=== PATIENT | female | born 1955 ===

== ENCOUNTER 2017-10-31 22:57 | Inpatient (IN) | payer OTHER ==
[2017-11-01 02:01] LABS: Basophils # (Auto) 0.1 K/mm3 (0.0-0.1); Basophils % (Auto) 1.1 % (0.0-1.8); Eosinophils % (Auto) 0.3 % (0.0-4.3); Hematocrit 36.8 % (30.3-42.9); Hemoglobin 12.7 gm/dl (10.1-14.3); Lymphocytes # (Auto) 2.2 K/mm3 (1.2-5.4); Lymphocytes % (Auto) 28.8 % (13.4-35.0); Mean Corpuscular HGB Conc 35 % (30-34); Mean Corpuscular Hemoglobin 34 pg (28-32); Mean Corpuscular Volume 97 fl (79-97); Monocytes # (Auto) 0.4 K/mm3 (0.0-0.8); Monocytes % (Auto) 5.6 % (0.0-7.3); Platelet Count 303 K/mm3 (140-440); Red Blood Count 3.79 M/mm3 (3.65-5.03); Red Cell Distribution Width 13.9 % (13.2-15.2)
[2017-11-01 02:12] LABS: Alanine Aminotransferase 12 units/L (7-56); Albumin 4.5 g/dL (3.9-5); BUN/Creatinine Ratio 34; Blood Urea Nitrogen 27 mg/dL (7-17); Calcium 8.9 mg/dL (8.4-10.2); Hemolysis Index 4
--- NOTE | 2017-11-01 03:31 | XRay Report ---
FINAL REPORT PROCEDURE: XR FEMUR 2+V RT TECHNIQUE: RIGHT femur radiographs, AP and lateral views. HISTORY: right leg pain COMPARISON: No prior studies are available for comparison. FINDINGS: Fracture (s) and/or Dislocation(s): None . Joint space(s): Normal . Soft tissues: Normal . Bone mineralization: Normal . Foreign bodies: None . IMPRESSION: Normal Examination
--- NOTE | 2017-11-01 04:06 | Cat Scan Report ---
FINAL REPORT PROCEDURE: CT HEAD/BRAIN WO CON TECHNIQUE: Computerized tomography of the head was performed without contrast material. HISTORY: dizziness COMPARISON: No prior studies are available for comparison. FINDINGS: Skull and scalp: There is an old right frontal craniotomy defect.. Paranasal sinuses: Normal. Ventricles and subarachnoid spaces: There is central and cortical atrophy appropriate for the patient's age.. Cerebrum: No evidence of hemorrhage, acute infarction or mass. 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 Cerebellum and brainstem: No evidence of hemorrhage, acute infarction or mass. Vasculature: Normal. Comments: None. IMPRESSION: There is an old right frontal craniotomy defect.. There is central and cortical atrophy appropriate for the patient's age.. There is no hemorrhage, edema, mass, mass effect or midline shift. 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
[2017-11-01] MEDS ORDERED: NORCO 5/325 PO ONE (05:22)
[2017-11-01] MEDS ORDERED: ANTIVERT PO ONE (05:22)
[2017-11-01] MEDS ORDERED: NACL 0.9% 1000 ML 1,000 ML IV ONE (05:25)
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
[2017-11-01 13:15] LABS: Bilirubin,Urine NEG (Negative); Blood,Urine LG (Negative); Color,Urine Yellow (Yellow); Mucus,Urine FEW /HPF; Urobilinogen,Urine < 2.0 mg/dL (<2.0)
[2017-11-01] MEDS ORDERED: APRESOLINE IV PRN (22:37)
[2017-11-01] MEDS ORDERED: ZOFRAN IV PRN (22:37)
[2017-11-02] MEDS: NACL 0.9% 1000 ML 1,000 ML IV SCH ×2 (08:23→23:08)
[2017-11-02] MEDS ORDERED: FIORICET PO PRN (10:14)
--- NOTE | 2017-11-02 10:21 | Progress Note ---
Assessment and Plan - Patient Problems (1) Ataxia Current Visit: Yes Status: Acute Plan to address problem: Secondary to hypotension IV fluids for now For discharge tomorrow (2) UTI (urinary tract infection) Current Visit: Yes Status: Acute Qualifiers: Urinary tract infection type: acute cystitis Plan to address problem: Patient initiated on Rocephin today If symptomatically better patient to be discharged on oral antibiotics tomorrow. Check urine cultures (3) Hyponatremia Current Visit: Yes Status: Acute Plan to address problem: Secondary to Dehydration Should correct with IV fluids (4) Low TSH level Current Visit: Yes Status: Acute Plan to address problem: T4 is normal Probable sick Euthyroid syndrome (5) Headache Current Visit: Yes Status: Chronic Qualifiers: Headache type: tension-type Intractability: intractable Plan to address problem: Patient has craniotomy in the past Symptomatic treatment with Fioricet (6) DVT prophylaxis Current Visit: Yes Status: Acute Plan to address problem: On Lovenox Subjective Date of service: 11/02/17 Principal diagnosis: UTI,Hypotension Interval history: Still has severe Headache and dizziness Objective - Constitutional Vitals: Vital Signs - 12hr 11/01/17 11/02/17 11/02/17 23:41 05:15 07:26 Temperature 97.7 F 98.0 F 98.4 F Pulse Rate 102 H 82 76 Respiratory 18 20 16 Rate Blood Pressure 136/91 138/92 138/84 O2 Sat by Pulse 96 96 96 Oximetry General appearance: Present: no acute distress, well-nourished - EENT Eyes: PERRL, EOM intact ENT: hearing intact, clear oral mucosa Ears: bilateral: normal - Neck Neck: supple, normal ROM - Respiratory Respiratory effort: normal Respiratory: bilateral: CTA - Breasts Breasts: normal - Cardiovascular Rhythm: regular Heart Sounds: Present: S1 & S2. Absent: gallop, rub Extremities: no ischemia, pulses intact, No edema, normal color, Full ROM - Gastrointestinal General gastrointestinal: Present: soft, non-tender, non-distended, normal bowel sounds - Genitourinary Female genitourinary: normal - Integumentary Integumentary: clear, warm, dry - Musculoskeletal Musculoskeletal: 1, strength equal bilaterally - Neurologic Neurologic: moves all extremities - Psychiatric Psychiatric: memory intact, appropriate mood/affect, intact judgment & insight - Labs CBC & Chem 7: 11/01/17 00:59 11/01/17 00:59 Labs: Abnormal lab results 11/01/17 Range/Units 12:58 Urine WBC (Auto) 131.0 H (0.0-6.0) /HPF CT Head IMPRESSION: There is an old right frontal craniotomy defect.. There is central and cortical atrophy appropriate for the patient's age.. There is no hemorrhage , edema, mass, mass effect or midline shift. 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
[2017-11-02] MEDS ORDERED: ROCEPHIN/NS 2 GM/100 ML 2 GM/100 ML BAG IV SCH (11:00)
[2017-11-02] MEDS: cefTRIAXone 2 GM in NACL 0.9% 20 ML IV SCH (15:48)
[2017-11-03 08:12] LABS: Basophils % (Auto) 0.8 % (0.0-1.8); Eosinophils # (Auto) 0.1 K/mm3 (0.0-0.4); Eosinophils % (Auto) 2.4 % (0.0-4.3); Hematocrit 34.6 % (30.3-42.9); Hemoglobin 11.9 gm/dl (10.1-14.3); Lymphocytes # (Auto) 2.6 K/mm3 (1.2-5.4); Lymphocytes % (Auto) 43.1 % (13.4-35.0); Mean Corpuscular HGB Conc 34 % (30-34); Mean Corpuscular Hemoglobin 34 pg (28-32); Mean Corpuscular Volume 97 fl (79-97); Monocytes # (Auto) 0.4 K/mm3 (0.0-0.8); Monocytes % (Auto) 7.2 % (0.0-7.3); Platelet Count 235 K/mm3 (140-440); Red Blood Count 3.55 M/mm3 (3.65-5.03); Red Cell Distribution Width 13.8 % (13.2-15.2)
[2017-11-03 08:34] LABS: Alanine Aminotransferase 7 units/L (7-56); Albumin 3.6 g/dL (3.9-5); BUN/Creatinine Ratio 18; Blood Urea Nitrogen 9 mg/dL (7-17); Calcium 8.6 mg/dL (8.4-10.2); Hemolysis Index 1
[2017-11-03] MEDS: cefTRIAXone 2 GM in NACL 0.9% 20 ML IV SCH (09:50)
--- NOTE | 2017-11-03 12:16 | Progress Note ---
Assessment and Plan Ataxia [employer] dyfunction Cardiomegaly HTN Plan CT head was nl IV hydration Orthostatic blood pressure measurements carotid doppler optimize BP control DVT PPX with lovenox Subjective Date of service: 11/03/17 Principal diagnosis: UTI,Hypotension Interval history: Patient seen and examined. No more dizziness. Objective - Exam Narrative Exam: Constitutional: Well-nourished well-developed. In no distress Head: Normocephalic atraumatic Eyes: Pupils are equal round and reactive to light Nose: No enlarged turbinates, no septal deviation. Mouth: Moist mucous membranes. Neck: Supple no thyromegaly. No bruit. No JVD Heart: Regular rate and rhythm, S1-S2 abnormal. No rubs murmurs or gallop Lungs: Clear to auscultation bilaterally no rales or rhonchi Abdomen: Soft, nontender. Bowel sound are present. Extremities: No edema no cyanosis and no clubbing. Neuro: Alert oriented Oriented x3. No focal sensory or motor deficit. Skin: No rashes no hyperemic spots Psychiatry: Euthymic. Calm. - Constitutional Vitals: Vital Signs - 12hr 11/03/17 06:05 Temperature 98.1 F Pulse Rate 66 Respiratory 18 Rate Blood Pressure 148/77 O2 Sat by Pulse 100 Oximetry - Labs CBC & Chem 7: 11/03/17 05:58 11/03/17 05:58 Labs: Abnormal lab results 11/03/17 11/03/17 Range/Units 05:58 05:58 RBC 3.55 L (3.65-5.03) M/mm3 MCH 34 H (28-32) pg Lymph % (Auto) 43.1 H (13.4-35.0) % Potassium 3.5 L (3.6-5.0) mmol/L Creatinine 0.5 L (0.7-1.2) mg/dL Total Protein 6.2 L (6.3-8.2) g/dL Albumin 3.6 L (3.9-5) g/dL
[2017-11-03] MEDS ORDERED: K-DUR PO NR (16:04)
[2017-11-03] MEDS: HABITROL TD SCH (18:28)
[2017-11-04] MEDS: HABITROL TD SCH (10:43)
[2017-11-04] MEDS: cefTRIAXone 2 GM in NACL 0.9% 20 ML IV SCH (10:43)
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
[2017-11-05] MEDS: HABITROL TD SCH (09:41)
[2017-11-05] MEDS: cefTRIAXone 2 GM in NACL 0.9% 20 ML IV SCH (09:43)
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
[2017-11-06 08:25] VITALS: BP 131/81
== END 2017-11-06 08:50 | disposition home health service (06) | DRG 74 ==
LOC: ED 22:57 → 4A 11-01 10:14 → 3A 11-01 14:21
PROVIDERS: ADMIT Internal Medicine; ATTEND Internal Medicine
DX: G90.8 Other disorders of autonomic nervous system (principal); N39.0 Urinary tract infection, site not specified; E87.1 Hypo-osmolality and hyponatremia; I11.9 Hypertensive heart disease without heart failure; R27.0 Ataxia, unspecified; F17.200 Nicotine dependence, unspecified, uncomplicated; I95.9 Hypotension, unspecified; E86.0 Dehydration; R51 Headache; E87.6 Hypokalemia
CPT/HCPCS: 36415; 70450; 80053; 81001; 82962; 84439; 84443; 84484; 85025; 93005; 93010; 96360; 96361; 99406; J0696; J7030